=== PATIENT | female | born 1930 | race Caucasian/White ===

== ENCOUNTER 2016-07-04 09:17 | Emergency (ER) | payer OTHER ==
[2016-07-04] MEDS ORDERED: ASPIRIN PO STA (09:42)
--- NOTE | 2016-07-04 10:15 | PROVIDER DOCUMENTATION ---
HPI-Chest Pain - General Chief Complaint: Chest Pain Stated Complaint: CP Time Seen by Provider: 07/04/16 09:56 Source: patient Allergies/Adverse Reactions: Patient Allergies Allergy/AdvReac Type Severity Reaction Status Date / Time No Known Allergies Allergy Verified 07/04/16 10:26 Home Medications: ATORVAstatin [Lipitor] 20 mg PO QHS 07/04/16 Amoxicillin/Potassium Clav [Augmentin 875-125 Tablet] 1 tab PO DAILY 07/04/16 Carvedilol 12.5 mg PO BID 07/04/16 Clopidogrel [Plavix] 75 mg PO DAILY 07/04/16 Isosorbide Dinitrate 30 mg PO DAILY 07/04/16 Losartan Potassium 50 mg PO DAILY 07/04/16 Metformin HCl 500 mg PO QHS 07/04/16 - History of Present Illness-CP Nature of Presenting Problem: Patient is a 85 y/o f that presents to the ER after experiencing chest pain at 0200am. pt has no pain now but was 7/10 initially. radiation to left arm, pt has had no shortness of breath, n/v, or back pain, had stress test 05/30/2016 Location: reports: substernal Chest Pain Radiation: reports: arms (left) Quality of Pain: reports: dull Severity in ED: mild, moderate Onset/Duration: abrupt, this morning Timing: gone now, intermittent Context/Activities at Onset: reports: none Modifying Factors: improves with: nothing Associated Symptoms: denies: back pain, edema, fever/chills, nausea, shortness of breath, vomiting Nitro Today/Relief: no nitro taken today Aspirin Treatment Today: 325 mg x 1, provided by ED Prior Chest Pain/Cardiac Workup: reports: stress test (05/30/2016, no acute, old scar) Similar Symptoms Previously?: Yes Recently Seen Here or By Another Healthcare Provider: No Review of Systems - Adult - REVIEW OF SYSTEMS - ADULT Constitutional: denies: chills, fever Eyes: reports: no symptoms reported Ears, Nose, Mouth & Throat: denies: ear discharge, ear pain, sinus problem, throat pain, throat swelling Cardiovascular: reports: chest pain. denies: palpitations, syncope Respiratory: denies: cough, shortness of breath, wheezing Gastrointestinal: denies: abdominal pain, nausea, vomiting Genitourinary: reports: no symptoms reported Musculoskeletal: denies: back pain, joint pain, neck pain Integumentary: reports: no symptoms reported Neurological: denies: dizziness/vertigo, headache/migraines, syncope Psychiatric: reports: no symptoms reported Endocrine: reports: no symptoms reported Hematologic/Lymphatic: reports: no symptoms reported Allergic/Immunologic: reports: no symptoms reported All Other Systems: Reviewed and Negative Past History - Adult - PAST MEDICAL HISTORY-ADULT Review of Records: reports: Old Records Reviewed, Nursing Assessment Review, Medications Reviewed Cardiovascular: reports: HTN Endocrine/Immune: reports: Diabetes - PRIOR SURGERIES/PROCEDURES Surgical/Procedure History: reports: orthopedic (extremity) - IMMUNIZATION STATUS Childhood Immunizations: See Nurse Assessment Flu Vaccine: See Nurse Assessment - FAMILY HISTORY Family History: reviewed, not pertinent - SOCIAL HISTORY Smoking: non-smoker Living Situation: family Physical Exam-General - PHYSICAL EXAM-ADULT Initial Vital Signs Reviewed: Yes - CONSTITUTIONAL General Appearance: alert, no apparent distress - EYES Eyes: PERRL/EOMI, pink conjunctivae - HEAD, EARS, NOSE, MOUTH & THROAT HENMT: normocephalic/atraumatic, moist mucous membranes, normal ENT inspection - NECK Neck: full range of motion, normal inspection. negative: lymphadenopathy - RESPIRATORY Respiratory: lungs clear, normal breath sounds, no respiratory distress, no accessory muscle use - CARDIOVASCULAR Cardiovascular: normal peripheral pulses, regular rate, rhythm, no edema, no murmur - GASTROINTESTINAL (ABDOMEN) Abdominal Exam: normal bowel sounds, non tender, soft, no organomegaly, no pulsatile mass - MUSCULOSKELETAL Back Exam: no CVA tenderness, no vertebral tenderness Extremity: no calf tenderness, normal capillary refill, pelvis stable - SKIN Integumentary: warm/dry, other (ulcer to right lower leg( actively being treated )) - NEUROLOGIC Neurologic: grossly normal, no motor/sensory deficits - PSYCHIATRIC Psych/Mental Status: normal mood/affect, normal thought content, normal thought process Progress - PLAN OF CARE/RESULTS Progress/Plan/Lab Results: plan of care- cardiac work up 1248-lasix ordered due to elevated BNP 1308-dr.alan valdivia paged to determine if patient can be d/c home to f/u in office 1313- joint special operations for dr. valdivia, ok to f/u in office with in one to two weeks Vital Signs Temp Pulse Resp BP Pulse Ox 07/04/16 11:38 63 15 142/125 96 07/04/16 09:27 97.8 F 61 18 182/62 93 L No Known Allergies Allergy (Verified 07/04/16 10:26) ATORVAstatin [Lipitor] 20 mg PO QHS 07/04/16 Amoxicillin/Potassium Clav [Augmentin 875-125 Tablet] 1 tab PO DAILY 07/04/16 Carvedilol 12.5 mg PO BID 07/04/16 Clopidogrel [Plavix] 75 mg PO DAILY 07/04/16 Furosemide [Lasix] 40 mg PO DAILY #90 tablet 07/04/16 Isosorbide Dinitrate 30 mg PO DAILY 07/04/16 Losartan Potassium 50 mg PO DAILY 07/04/16 Metformin HCl 500 mg PO QHS 07/04/16 Spironolactone [Aldactone] 25 mg PO DAILY #90 tablet 07/04/16 Dietary Diet Regular Diet Start FriJul 04 1309 Laboratory 07/04/16 07/04/16 07/04/16 09:58 09:58 09:58 WBC RBC Hgb Hct MCV MCH MCHC RDW Std Deviation Plt Count MPV Immature Gran % (Auto) Neut % (Auto) Lymph % (Auto) Nobles % (Auto) Eos % (Auto) Baso % (Auto) Immature Gran # (Auto) Neut # (Auto) Lymph # (Auto) Nobles # (Auto) Eos # (Auto) Baso # (Auto) PT 12.4 H INR 1.17 PTT (Actin FS) 29.5 Sodium Potassium Chloride Carbon Dioxide Anion Gap BUN Creatinine Estimated GFR/1.73 m2 BUN/Creatinine Ratio Glucose Calculated Osmolality Calcium Magnesium Total Bilirubin AST ALT Alkaline Phosphatase Creatine Kinase Troponin T < 0.010 [id number] Pept 3906 H Total Protein Albumin Globulin Albumin/Globulin Ratio 07/04/16 07/04/16 09:58 09:58 WBC 12.44 H RBC 3.08 L Hgb 10.9 L Hct 34.4 L MCV 111.7 H MCH 35.4 H MCHC 31.7 L RDW Std Deviation 14.9 H Plt Count 825 H MPV 10.6 H Immature Gran % (Auto) 2.0 H Neut % (Auto) 80.5 H Lymph % (Auto) 7.9 L Nobles % (Auto) 3.5 Eos % (Auto) 4.5 Baso % (Auto) 1.6 H Immature Gran # (Auto) 0.25 H Neut # (Auto) 10.01 H Lymph # (Auto) 0.98 L Nobles # (Auto) 0.44 Eos # (Auto) 0.56 Baso # (Auto) 0.20 PT INR PTT (Actin FS) Sodium 137 Potassium 4.4 Chloride 101 Carbon Dioxide 23 L Anion Gap 13 BUN 17 Creatinine 1.0 H Estimated GFR/1.73 m2 53 BUN/Creatinine Ratio 17 Glucose 205 H Calculated Osmolality 281 Calcium 8.9 Magnesium 2.0 Total Bilirubin 1.05 H AST 12 ALT 6 L Alkaline Phosphatase 104 Creatine Kinase 27 Troponin T [id number]-Ofuuqsexftn Pept Total Protein 6.0 L Albumin 3.7 Globulin 2.3 Albumin/Globulin Ratio 1.6 Orders Category Date Time Status Cardiac Monitoring DIRECTED Care 07/04/16 09:43 Active Misc. NRSG Communication Order DIRECTED Care 07/04/16 13:05 Active Oxygen Therapy- ED Nursing DIRECTED Care 07/04/16 09:43 Active Saline Loc NOW Care 07/04/16 09:43 Active Regular Diet Diet 07/04/16 13:09 Active CHEST-2 VIEWS [RAD] Stat Exams 07/04/16 09:43 Draft CBC WITH ELECTRONIC DIFF [HEME] Stat Lab 07/04/16 09:58 Completed CK PROFILE [SP CHEM] Stat Lab 07/04/16 09:58 Completed COMPREHENSIVE METABOLIC PANEL [CHEM] Stat Lab 07/04/16 09:58 Completed MAGNESIUM [CHEM] Stat Lab 07/04/16 09:58 Completed PRO B-NATRIURETIC PEPTIDE Stat Lab 07/04/16 09:58 Completed PROTIME WITH INR [COAG] Stat Lab 07/04/16 09:58 Completed PTT [COAG] Stat Lab 07/04/16 09:58 Completed TROPONIN T Stat Lab 07/04/16 09:58 Completed Aspirin Med 07/04/16 09:42 Discontinued 325 mg PO STAT STA Furosemide [Lasix] Med 07/04/16 12:48 Discontinued 40 mg IV NOW ONE EKG [EKG] Stat Ther 07/04/16 09:25 Draft pt will be d/c home f/u with pcp in one to two weeks, rx given, pt was clinically stable and understood d/c instructions. - EKG 1 Time of EKG reading by physician:: 09:27 EKG Read and Signed by:: Buster Lopez EKG Interpretation (*Must complete 3 of following elements*): Abnormal Rate: 60 Rhythm: NSR [place]: normal QRS: normal VT Interval: normal ST Wave: non-specific ST changes - XRAY 1 XRAY Study: Chest Impression: Abnormal XRAY Interpretation: CMG, pulmonary edema, pleural effusions - CONSULTS/PCP/HOSPITALIST Notification #1 *Consult/PCP/Hospitalist*: Time Discussed: 13:13 Reason/Comments: f/u with dr.alan valdivia in office, ok to d/c home with lasix Consult Disposition: F/U in office Departure - Departure Time of Disposition Order: 13:15 DIAGNOSIS: Chest pain, Pulmonary edema Disposition: HOME 01 Certified Medical Emergency: Emergent Condition: Stable Prescriptions: Spironolactone [Aldactone] 25 mg PO DAILY #90 tablet Furosemide [Lasix] 40 mg PO DAILY #90 tablet Referrals: Luis Valdivia [Primary Care Provider] - Call for Appoint. 1-2days Instructions: Chest Pain Observation, Pulmonary Edema, [id number] Attestation - Scribe Verification/Attestation Scribe:: Juanito Zarate Acting as Scribe for:: Ilan Wade Scribe documention review:: This chart was documented by a scribe and accurately reflects the service the provider performed and the decisions made by the provider. Physician Attestation - Physician Attestation I, the provider, attest to the following statement:: Ilan Wade Physician documentation Attestation:: This documentation recorded by the scribe accurately reflects the service I personally performed and the decisions made by me.
[2016-07-04 10:28] LABS: ALBUMIN 3.7 g/dL (3.5-5.0); CALCIUM 8.9 mg/dL (8.8-10.2); POTASSIUM 4.4 mmol/L (3.5-5.1); TOTAL BILIRUBIN 1.05 mg/dL (0.20-1.00)
[2016-07-04 10:31] LABS: BASO% 1.6 % (0.0-0.8); EOS# 0.56 X1000 (0.0-0.7); EOS% 4.5 % (0.0-10.0); HEMATOCRIT 34.4 % (37.0-47.0); HEMOGLOBIN 10.9 g/dL (12.0-16.0); IMM GRAN# 0.25 X1000 (0.0-0.04); INR 1.17; LYMPH# 0.98 X1000 (1.2-3.4); LYMPH% 7.9 % (20.5-51.1); MANUAL DIFF NEEDED? NO; MCH 35.4 PG (27-31); MCHC 31.7 g/dL (33-37); MCV 111.7 FL (81-99); MONO# 0.44 X1000 (0.11-0.59); MONO% 3.5 % (1.7-9.3); MPV 10.6 FL (7.4-10.4); NEUT% 80.5 % (42.2-75.2); PLT 825 X1000 (130-400); PROTIME 12.4 Seconds (9.2-11.7); PTT 29.5 Seconds (22.0-36.0); RBC 3.08 XMIL (4.2-5.4)
--- NOTE | 2016-07-04 11:01 | Diag Imaging Result Document ---
PROCEDURE NAME: CHEST-2 VIEWS - 07/04/2016 CHEST X-RAY 2 VIEWS: COMPARISON: 05/04/2015. FINDINGS: There is mild cardiomegaly and pulmonary vascular congestion. There is probably trace interstitial pulmonary edema. There are also trace pleural effusions. IMPRESSION: Mild cardiomegaly, pulmonary edema and pleural effusions.
--- NOTE | 2016-07-04 12:35 | EKG Report ---
Test Performed on : 07/04/2016 09:27:25 AM Test Reason : CP Blood Pressure : / mmHG Vent. Rate : 060 BPM Atrial Rate : 060 BPM P-R Int : 152 ms QRS Dur : 086 ms QT Int : 454 ms P-R-T Axes : 065 052 047 degrees QTc Int : 454 ms Normal sinus rhythm. Nonspecific T wave abnormality Abnormal ECG When compared with ECG of 04-MAY-2015 15:38, premature supraventricular complexes. are no longer present Vent. rate has decreased BY [address] no longer elevated in Inferior leads T wave inversion no longer evident in Lateral leads Unconfirmed Result
[2016-07-04] MEDS ORDERED: LASIX IV ONE (12:48)
[2016-07-04 14:30] VITALS: BP 164/54
== END 2016-07-04 14:35 | disposition home or self-care (01) ==
LOC: ED 09:17
DX: J81.1 Chronic pulmonary edema (principal); R07.9 Chest pain, unspecified; R94.31 Abnormal electrocardiogram [ECG] [EKG]; M79.602 Pain in left arm; L97.219 Non-pressure chronic ulcer of right calf with unspecified severity; I10 Essential (primary) hypertension; E11.9 Type 2 diabetes mellitus without complications; Z79.02 Long term (current) use of antithrombotics/antiplatelets; Z79.899 Other long term (current) drug therapy
CPT/HCPCS: 71020; 80053; 82550; 83735; 83880; 84484; 85025; 85610; 85730; 93005; 96374; J1940

== ENCOUNTER 2018-11-27 10:38 | Inpatient (IN) ==
[2018-11-27 14:13] LABS: I-STAT CREATININE 1.4 mg/dL (0.6-1.3)
--- NOTE | 2018-11-27 15:03 | Diag Imaging Result Doc PS360 ---
MRI ORBIT/FACE/NECK W/WO CON - 11/27/2018 INDICATION: oral abscess TECHNIQUE: COMPARISON: 06/05/2018 FINDINGS: There is an oval, irregular rim-enhancing fluid collection just medial to the right mandibular body. This measures 2.7 x 1.9 x 3.8 cm in AP, lateral, and craniocaudal dimensions. This extends up to the pterygoid musculature. There is some deviation of the tongue to the left. There is also significant deviation of the oral pharyngeal airway to the left. There is intense surrounding soft tissue hyperintensity and enhancement, also including the souvenir assembler musculature at the lateral side of the mandible. IMPRESSION: 1. Oral abscess in the right sublingual space. 2. Significant inflammation of the right sublingual and souvenir assembler spaces. 3. Significant deviation of the tongue base and oral airway to the right. 4. This report was discussed with Dr. Jf Hilton on 11/27/2018 at 2:45 PM and was readback. Electronically signed by Francisco Golden 11/27/2018 3:01 PM
[2018-11-27] MEDS ORDERED: NS 1,000 ML IV ONE ×2 (15:36→15:45)
[2018-11-27] MEDS: ZOSYN 3.375 GM in NS 50 ML IV SCH ×2 (15:49→20:32)
[2018-11-27] MEDS ORDERED: XYLOCAINE 1%/EPI 1:100,000 ONE (16:00)
--- NOTE | 2018-11-27 16:13 | Diag Imaging Result Doc PS360 ---
CHEST-PORTABLE - 11/27/2018 INDICATION: oral abscess, preop COMPARISON: 06/05/2018 FINDINGS: Stable mild cardiomegaly. Pulmonary vascularity is normal. No infiltrates or edema. No pneumothorax or pleural effusion. IMPRESSION: Mild cardiomegaly. Electronically signed by Francisco Golden 11/27/2018 4:11 PM
[2018-11-27] MEDS: HUMULIN R SUBQ SCH ×2 (16:29→20:30)
[2018-11-27] MEDS: MORPHINE IV PRN ×2 (16:30→18:06)
[2018-11-27 16:40] LABS: BASO# 0.29 X1000 (0.0-0.2); BASO% 1.8 % (0.0-0.8); EOS% 0.6 % (0.0-10.0); HEMATOCRIT 32.9 % (37.0-47.0); HEMOGLOBIN 10.5 g/dL (12.0-16.0); IMM GRAN# 0.08 X1000 (0.0-0.04); IMM GRAN% 0.5 % (0.0-0.5); LYMPH# 0.68 X1000 (1.2-3.4); LYMPH% 4.2 % (20.5-51.1); MCH 28.2 PG (27-31); MCHC 31.9 g/dL (33-37); MCV 88.4 FL (81-99); MONO# 0.38 X1000 (0.11-0.59); MONO% 2.4 % (1.7-9.3); MPV 11.5 FL (7.4-10.4); NEUT# 14.64 X1000 (1.4-6.5); NEUT% 90.5 % (42.2-75.2); PLT 331 X1000 (130-400); RBC 3.72 XMIL (4.2-5.4); RDW 19.8 % (11.5-14.5); WBC 16.17 X1000 (4.8-10.8)
[2018-11-27 16:44] LABS: HEMOGLOBIN A1C 5.8 % (4.8-6.0)
[2018-11-27 16:50] LABS: ALB/GLOB RATIO 1.4; ALBUMIN 3.7 g/dL (3.5-5.0); CALCIUM 8.5 mg/dL (8.8-10.2); CREATININE 1.3 mg/dL (0.5-0.9); POTASSIUM 3.7 mmol/L (3.5-5.1); TOTAL BILIRUBIN 1.25 mg/dL (0.20-1.00); TOTAL PROTEIN 6.3 g/dL (6.3-8.3)
--- NOTE | 2018-11-27 17:03 | HISTORY AND PHYSICAL ---
PRIMARY CARE PHYSICIAN: Dr. Luis Morales. CHIEF COMPLAINT: Neck and facial swelling. HISTORY OF PRESENT ILLNESS: Mrs. Parks is an 88-year-old female with a history of polycythemia, diabetes mellitus, dementia, hypertension, and chronic kidney disease who presents with significant right neck and facial swelling since yesterday. Symptoms started last night abruptly. She started having neck and facial pain followed by swelling. She reports subjective fever. She has not had any recent oral work done. Interestingly, she did have a right orbit fracture with hematoma in May of last year. She has also had facial zoster, per son, who is at the bedside. She went to see Dr. Hilton today, who felt she needed to be in the ICU given the amount of oral swelling. She has now arrived to the ICU and is hemodynamically stable, actually a bit hypertensive. She does have a low-grade fever. Laboratory data has been ordered along with cultures. An MRI of the orbits, face, and neck has been done, which shows an oral abscess in the right sublingual space with inflammation of the manufacturing quality inspector and right sublingual spaces and there is significant deviation of the tongue base and oral airway to the right. Her airway is intact at this time. She is being monitored closely. Will admit her for further treatment and evaluation. PAST MEDICAL HISTORY: 1. Polycythemia, on oral medication. 2. Paroxysmal atrial fibrillation, on anticoagulation. 3. Hypertension. 4. Type 2 diabetes mellitus. 5. History of orbital fracture. 6. Dementia. 7. CKD, exact stage unknown, but it looks like her creatinine hovers around 1.4. 8. History of CAD, status post ST elevation SC. SURGICAL HISTORY: Right oophorectomy and abdominal tumor removed. ORIF of left proximal humerus. SOCIAL HISTORY: No tobacco, alcohol, or drug use. She is . Son is at the bedside, takes care of her. REVIEW OF SYSTEMS: A 14-point review of systems was obtained and found to be negative with the exception of the HPI. PHYSICAL EXAMINATION: VITAL SIGNS: Blood pressure 172/69; heart rate 77; respiratory rate 18; O2 saturation 99% on room air; temperature 99.2. GENERAL: Elderly, somewhat disheveled appearing 88-year-old female lying in the hospital bed in no acute distress. NEUROLOGICAL: She is awake and alert. Follows commands. No focal deficits. HEENT: Head is atraumatic and normocephalic. Pupils are equal, round and reactive to light. Oral mucosa is dry. Significant swelling of the right neck and face with redness tracking up to the right ear. Direct intraoral visualization is difficult due to the swelling. There is no obvious tracheal deviation. She is drooling a little bit and having a difficult time speaking. The submandibular mass is warm. CHEST: Diminished but clear to auscultation bilaterally. CARDIOVASCULAR: Regular rate and rhythm. S1 and S2 are noted. There are no appreciable murmurs. GASTROINTESTINAL: Soft, nontender and nondistended. Bowel sounds are active. EXTREMITIES: No edema, clubbing, or cyanosis. Pulses are palpable bilaterally. DIAGNOSTIC DATA: Orbits/face MRI: Oral abscess in the right sublingual space, inflammation of the right sublingual and manufacturing quality inspector spaces with deviation of the tongue base and oral airway to the right. Otherwise, laboratory data is pending. ASSESSMENT AND PLAN: 1. Oral abscess: Surgical management per Dr. Hilton. We have added Zosyn for antibiotic coverage. Have drawn blood cultures. 2. History of coronary artery disease: The patient denies any chest pain at this time. Aspirin is on hold. Will try to obtain records, possibly obtain a Cardiology clearance from Cardiology here. She sees Dr. Acevedo. 3. Polycythemia: Awaiting complete blood count. She is apparently on medication, followed by Dr. Roberts. Will monitor and treat accordingly. 4. Diabetes mellitus: Will add patterned sugars sliding scale insulin. Check a hemoglobin A1c. 5. Hypertension: Continue home medications once reconciled. 6. History of atrial fibrillation: She is on Eliquis, per the son. Will stop that. Continue any rate control. Further recommendations to follow. Dictated by LUNA Ingram for Memo Solares MD cc: LUNA Ingram MD I have seen and examined Ms Parks today. She presents from Dr Hilton office due to dental abscess. I have reviewed her labs and imaging studies. She has dental abscess with extension to sublingual space. She will be started on broad spectrum IV antibiotics and we pending surgical I and D. I agree with the above HPI and the plan reflects my opinion discussed with the LICENSING MANAGER. I have also discussed the plan with Ms. Parks. LUIS
[2018-11-27 17:12] LABS: EOS 1 % (1-10); LYMPHS 5 % (21-51); MONO 2 % (1-9); SEGS 92 % (42-75)
[2018-11-27 17:42] LABS: URINE SOURCE CLEAN CATCH
[2018-11-27 17:51] LABS: BILIRUBIN URINE NEGATIVE (NEGATIVE); BLOOD URINE TRACE (NEGATIVE); COLOR YELLOW; GLUCOSE URINE TRACE mg/dL (NEGATIVE); KETONE URINE TRACE mg/dL (NEGATIVE); LEUKOCYTES URINE LARGE (NEGATIVE); NITRITE URINE NEGATIVE (NEGATIVE); PH URINE 6.5; PROTEIN URINE 300 mg/dL (NEGATIVE); TURBIDITY URINE HAZY (CLEAR); UROBILINOGEN URINE 2 mg/dL (NORMAL)
[2018-11-27 17:53] LABS: URINE BACTERIA 1+ /HPF; URINE RBC <10 /HPF (<10); URINE WBC TNTC /HPF (<10)
[2018-11-27] MEDS ORDERED: DILAUDID IV ONE (19:03)
[2018-11-27 19:16] LABS: UR EPITHELIAL CELLS <10 /HPF (<10)
[2018-11-27] MEDS: CLINDAMYCIN 600 MG/D5W 600 MG/50 ML IVPB IV SCH (19:20)
--- NOTE | 2018-11-28 00:05 | OPERATIVE NOTE ---
PROCEDURE DATE: 11/27/2018 PREOPERATIVE DIAGNOSIS: Dental abscess. POSTOPERATIVE DIAGNOSIS: Dental abscess. PROCEDURE: Incision and drainage, floor of mouth and dental abscess. COMPLICATIONS: None. ANESTHESIA: Local 1% lidocaine with 1:100,000 epinephrine. INDICATIONS: This is a diabetic 88-year-old lady who had an MRI and was noted to have an abscess medial to the mandible on the right side. I spoke with Dr. Gaytan, as Belia Ocampo has no oral surgeons construction recruiter. I asked him to advise me how to handle this. He said the intraoral incision would be a reasonable thing to try, and he would follow up with the patient as an outpatient. DESCRIPTION OF PROCEDURE: The patient was identified and consented. Options were reviewed. She was placed with the head of bed elevated and her ICU bed scooted towards the right rail. With retractors, her buccal mucosa was retracted and the tongue was retracted medially. The right mandible was exposed. There was purulent drainage from the anterior portion of the retromolar trigone. There must be some dental roots left in there, as this is where the drainage is coming from, but there are no teeth visualized. Lidocaine was placed and an incision was created over the medial aspect of the mandible. Copious amounts of purulent material was removed using incision and spreading technique with a long hemostat. Cultures were sent. Instructions were given to the nurses to advance her diet. Continue antibiotics per hospitalist. This should help quite a bit. Again, she will follow up with Dr. Gaytan as an outpatient once she is discharged from the hospital. cc: Jeremy Hilton MD
[2018-11-28] MEDS: CLINDAMYCIN 600 MG/D5W 600 MG/50 ML IVPB IV SCH ×3 (03:25→17:30)
[2018-11-28] MEDS: ZOSYN 3.375 GM in NS 50 ML IV SCH ×4 (03:32→21:05)
[2018-11-28 06:33] LABS: BASO# 0.24 X1000 (0.0-0.2); BASO% 1.5 % (0.0-0.8); EOS# 0.05 X1000 (0.0-0.7); EOS% 0.3 % (0.0-10.0); HEMATOCRIT 31.4 % (37.0-47.0); HEMOGLOBIN 9.9 g/dL (12.0-16.0); IMM GRAN# 0.07 X1000 (0.0-0.04); IMM GRAN% 0.5 % (0.0-0.5); LYMPH# 0.58 X1000 (1.2-3.4); LYMPH% 3.7 % (20.5-51.1); MCHC 31.5 g/dL (33-37); MCV 88.7 FL (81-99); MONO# 0.46 X1000 (0.11-0.59); MPV 12.5 FL (7.4-10.4); PLT 337 X1000 (130-400); RBC 3.54 XMIL (4.2-5.4); RDW 20.1 % (11.5-14.5)
[2018-11-28 06:37] LABS: CALCIUM 8.9 mg/dL (8.8-10.2); CREATININE 1.4 mg/dL (0.5-0.9); MAGNESIUM 2.1 mg/dL (1.5-2.7); POTASSIUM 3.4 mmol/L (3.5-5.1)
[2018-11-28] MEDS: HUMULIN R SUBQ SCH ×4 (07:47→20:52)
[2018-11-28] MEDS: MORPHINE IV PRN ×4 (09:16→21:06)
--- NOTE | 2018-11-28 13:55 | PROGRESS NOTE ---
DATE: 11/28/2018 SUBJECTIVE: This morning Ms. Parks refers to be doing a lot better. She got admitted yesterday because of dental abscess with facial cellulitis. She underwent some incision and drainage of floor of mouth and dental abscess by Dr. Hilton. This morning, she refers to be feeling a lot better. OBJECTIVE: Vital Signs: Blood pressure is 168/57, pulse of 71, respirations is 20, temperature is 99.2 degrees. General exam: Ms. Parks is an 88-year-old female. She was in bed in no distress. HEENT: Mucosa is pink and moist. Anicteric. Acyanotic. Neck: Supple. There is swelling over the right mandible angle. That comes all the way down to the submandibular and sublingual area on the right side. It is minimally tender. The erythematous change that was very obvious yesterday, is now gone. Chest: Good air entry bilaterally. No crepitations. Cardiovascular: Regular rate and rhythm. There are no murmurs, no rubs, no gallops. Abdomen: Soft, nontender. Extremities: No pedal edema. ADMINISTRATION MANAGER: Patient is awake, alert, and oriented. LABORATORY DATA: WBC is down to 15.50, hemoglobin is 9.9, platelet count of 337. Chemistry is also reviewed, unremarkable. The stain from the abscess shows gram-positive cocci 1+. ASSESSMENT: 1. Dental abscess extending into the sublingual space causing Beto angina. The patient is status post incision and drainage. I understand a lot of purulent material was drained during surgery. We are still pending the incision and drainage on the culture report. For now, patient is on Zosyn and clindamycin. The Gram stain seems to suggest gram-positive cocci, but we are going to wait for the final incision and drainage. 2. History of coronary artery disease. The patient is currently stable and asymptomatic. 3. History of polycythemia vera. The patient is on Jakafi; we will restart her back. 4. Diabetes mellitus, controlled. 5. History of atrial fibrillation, currently rate controlled. The patient was on Eliquis for stroke prophylaxis. We would resume this tomorrow once there is an adequate hemostasis. cc: Memo Solares MD
[2018-11-29] MEDS: CLINDAMYCIN 600 MG/D5W 600 MG/50 ML IVPB IV SCH ×2 (03:12→11:21)
[2018-11-29] MEDS: ZOSYN 3.375 GM in NS 50 ML IV SCH ×4 (03:14→20:58)
[2018-11-29 06:38] LABS: BASO# 0.22 X1000 (0.0-0.2); BASO% 1.7 % (0.0-0.8); EOS# 0.23 X1000 (0.0-0.7); EOS% 1.7 % (0.0-10.0); HEMATOCRIT 28.3 % (37.0-47.0); HEMOGLOBIN 8.9 g/dL (12.0-16.0); IMM GRAN# 0.05 X1000 (0.0-0.04); IMM GRAN% 0.4 % (0.0-0.5); LYMPH% 4.5 % (20.5-51.1); MCH 27.7 PG (27-31); MCHC 31.4 g/dL (33-37); MCV 88.2 FL (81-99); MONO# 0.35 X1000 (0.11-0.59); MONO% 2.6 % (1.7-9.3); MPV 12.5 FL (7.4-10.4); NEUT# 11.76 X1000 (1.4-6.5); NEUT% 89.1 % (42.2-75.2); PLT 331 X1000 (130-400); RBC 3.21 XMIL (4.2-5.4); RDW 19.9 % (11.5-14.5); WBC 13.21 X1000 (4.8-10.8)
[2018-11-29] MEDS: HUMULIN R SUBQ SCH ×4 (06:47→20:58)
[2018-11-29 06:54] LABS: CALCIUM 8.2 mg/dL (8.8-10.2); CREATININE 1.4 mg/dL (0.5-0.9); MAGNESIUM 2.1 mg/dL (1.5-2.7); POTASSIUM 2.9 mmol/L (3.5-5.1)
[2018-11-29 07:19] LABS: EOS 1 % (1-10); LYMPHS 4 % (21-51); MONO 2 % (1-9); SEGS 93 % (42-75)
[2018-11-29] MEDS ORDERED: KLOR-CON PO ONE (08:19)
[2018-11-29] MEDS ORDERED: NORCO-7.5 PO PRN (08:46)
--- NOTE | 2018-11-29 09:10 | PROGRESS NOTE ---
DATE: 11/29/2018 SUBJECTIVE: This morning, Ms. Parks refers to be feeling a little better. Still has some pain in the submandibular region, which continues to be swollen. OBJECTIVE: Vital signs: Blood pressure is 134/54, pulse of 63, respirations 15, temperature is 98.8 degrees. General: Ms. Parks is an 88-year-old female. She was in bed. She did not seem to be in any cardiopulmonary distress. ENT: Mucosa is pink and moist, anicteric and acyanotic. Head and neck: The submandibular region is particularly more swollen, tender. There is no change of the overlying skin pain and I do not feel any fluctuation. Neck: Supple. Chest: Good air entry bilaterally. There were no crepitations, no rhonchi. Cardiovascular: Regular rate and rhythm. No murmurs, no rubs, no gallops. GI: Abdomen was soft, nontender. Bowel sounds present. Extremities: No pedal edema. Distal pulses were present. WAREHOUSE DRIVER: Patient is awake, alert, and oriented. LABORATORY DATA: WBC is down to 13.21, hemoglobin is 8.9, platelet count of 333,000. There are no bands on peripheral smear. Chemistry is also reviewed. Potassium is 2.9, chloride is 108, creatinine is 1.4. That is patient's baseline. ASSESSMENT: 1. Dental abscess extending into the sublingual space causing a lot of angina. The patient is status post incision and drainage. Culture from that specimen has been negative. The patient is currently on Zosyn and clindamycin. She continues to have some pain, so we are going to add something for pain and an anti-inflammatory medication and will be pending further evaluation and recommendations from Dr. Hilton. 2. History of coronary artery disease, currently asymptomatic. 3. History of polycythemia vera. The patient is on Jakafi. 4. Diabetes mellitus, controlled. 5. History of atrial fibrillation, currently rate controlled. 6. History of chronic kidney disease. The creatinine is fairly stable. We are going to be keeping a very close eye on this since we are putting the patient on a very low dose of NSAIDs. cc: Memo Solares MD
[2018-11-29] MEDS: NS 1,000 ML IV SCH ×2 (09:14→22:55)
[2018-11-29] MEDS ORDERED: VANCOMYCIN IV PER PHARMACY MISC SCH (13:30)
[2018-11-29] MEDS: MOTRIN PO SCH ×2 (14:20→20:58)
[2018-11-29] MEDS ORDERED: VANCOMYCIN 1,500 MG in NS 250 ML IV ONE (15:00)
[2018-11-30] MEDS: MOTRIN PO SCH (04:41)
[2018-11-30] MEDS: ZOSYN 3.375 GM in NS 50 ML IV SCH ×3 (04:41→09:42)
[2018-11-30] MEDS: HUMULIN R SUBQ SCH ×2 (06:03→11:20)
[2018-11-30 07:39] LABS: BASO# 0.39 X1000 (0.0-0.2); BASO% 2.8 % (0.0-0.8); EOS# 0.46 X1000 (0.0-0.7); EOS% 3.3 % (0.0-10.0); HEMATOCRIT 30.4 % (37.0-47.0); HEMOGLOBIN 9.8 g/dL (12.0-16.0); IMM GRAN# 0.11 X1000 (0.0-0.04); IMM GRAN% 0.8 % (0.0-0.5); LYMPH# 0.55 X1000 (1.2-3.4); LYMPH% 3.9 % (20.5-51.1); MCH 28.2 PG (27-31); MCHC 32.2 g/dL (33-37); MCV 87.4 FL (81-99); MONO# 0.33 X1000 (0.11-0.59); MONO% 2.4 % (1.7-9.3); MPV 12.3 FL (7.4-10.4); NEUT# 12.13 X1000 (1.4-6.5); NEUT% 86.8 % (42.2-75.2); PLT 384 X1000 (130-400); RBC 3.48 XMIL (4.2-5.4); RDW 20.6 % (11.5-14.5); WBC 13.97 X1000 (4.8-10.8)
[2018-11-30 07:51] LABS: EOS 2 % (1-10); LYMPHS 10 % (21-51); SEGS 88 % (42-75)
[2018-11-30 07:54] VITALS: BP 177/86
[2018-11-30 08:31] LABS: POTASSIUM 4.1 mmol/L (3.5-5.1)
[2018-11-30 08:32] LABS: ALB/GLOB RATIO 1.5; ALBUMIN 3.5 g/dL (3.5-5.0); CALCIUM 8.6 mg/dL (8.8-10.2); CREATININE 1.4 mg/dL (0.5-0.9); TOTAL BILIRUBIN 1.01 mg/dL (0.20-1.00); TOTAL PROTEIN 5.8 g/dL (6.3-8.3)
[2018-11-30] MEDS ORDERED: LANTUS INSULIN SUBQ SCH (11:00)
[2018-11-30] MEDS ORDERED: LANTUS INSULIN SUBQ ONE (11:00)
--- NOTE | 2018-12-01 06:40 | DISCHARGE SUMMARY ---
ADMISSION DATE: 11/27/2018 DISCHARGE DATE: 11/30/2018 DISPOSITION: Home. FOLLOW-UP: 1. Dr. Luis Morales MD 2. Dr. Jeremy Hilton 3. Dr. Gaytan CONSULTATION DURING ADMISSION: ENT was consulted. Patient was seen by Dr. Hilton. INVASIVE PROCEDURE DONE DURING THIS ADMISSION: Incision and drainage floor of mouth and dental abscess was done by Dr. Hilton. IMAGING STUDIES OF SIGNIFICANCE: MRI of the orbit, face and neck showed an oral abscess in the right sublingual space, significant inflammation of the right sublingual and rapid transit operator space. So far, the culture from the mouth showed Streptococcus anginosus. ADMISSION DIAGNOSES: 1. Oral abscess. 2. History of coronary artery disease. 3. Polycythemia. 4. Hypertension. 5. History of atrial fibrillation. DIAGNOSES AT TIME OF DISCHARGE: 1. Dental abscess extending into the sublingual space causing Beto's angina. The patient is status post I and D. Surgical specimen has grown Streptococcus anginosus. 2. History of coronary artery disease, asymptomatic. 3. Polycythemia vera on Jak[place]i. 4. Diabetes mellitus controlled. 5. History of atrial fibrillation currently rate controlled. 6. CKD stage 3A. DISCHARGE MEDICATIONS: 1. Losartan 25 mg p.o. daily. 2. Synthroid 75 p.o. daily. 3. Amiodarone 100 mg p.o. daily. 4. Docusate 100 mg p.o. daily. 5. 2.5 p.o. daily and 5 mg at bedtime. 6. Insulin glargine 10 units subcutaneous at bedtime. 7. Pantoprazole 40 mg daily. 8. Linagliptin 5 mg p.o. daily. 9. Apixaban 2.5 b.i.d. 10. Tramadol 50 mg 4 times per day p.r.n. 11. Motrin 400 p.o. q.8. 12. Clindamycin 300 mg 3 times per day. 13. Lactobacillus. 14. Augmentin 875 p.o. q.12h. PRESENTING COMPLAINT: Neck and facial swelling. HISTORY OF PRESENTING COMPLAINT: Ms. Parks is an 88-year-old female with multiple comorbidities including polycythemia vera, paroxysmal atrial fibrillation, diabetes mellitus, CKD, and coronary artery disease status post stent in the past. She went to visit her primary care doctor because of facial swelling. She was sent to see Dr. Hilton, who recommended admission. An MRI was done which confirmed a dental abscess extending to the sublingual space causing some hoarseness and deviation of the tongue. The patient was admitted to the ICU because of a concern of airway compromise. She was started on IV broad-spectrum antibiotics and adequate hydration. Other comorbidities were managed and ENT was consulted. Patient was seen by Dr. Hilton. He took the patient to the OR and did an I and D. Subsequently, patient continues to improve. The specimen has grown Streptococcus anginosus. The patient has been moved to the regular floor. She is doing fine. White cell count has almost normalized. We think Ms Parks is doing a lot better so she is going to be discharged on oral antibiotics. She will follow up with Dr. Hilton as well as Dr. Gaytan, who is an oral dental surgeon, and the patient's primary PCP. All of the discharge instructions have been discussed with her. At the time of the discharge, vitals show blood pressure is 177/86, pulse of 75, respirations 20, and temperature is 98.6 degrees. The patient's facial submandibular and sublingual swelling has remarkably improved. TIME SPENT FOR DISCHARGE: 36 minutes. cc: MD Luis Andrews MD Dr. Light Dr. Littlejohn MTDD
[2018-12-01] MEDS ORDERED: VANCOMYCIN 1,250 MG in NS 250 ML IV SCH (14:00)
== END 2018-11-30 12:42 | disposition home or self-care (01) | DRG 138 ==
LOC: DIRADM 10:38 → ICU 10:56 → 3N 11-29 15:15
PROVIDERS: ATTEND Internal Medicine
CPT/HCPCS: 70543; 71010; 71045; 80048; 80053; 81001; 82550; 82565; 82948; 83036; 83735; 83880; 84484; 84520; 85025; 87040; 87070; 87075; 87077; 87088; 87186; 87205; A9270; A9579; J1170; J1815; J2270; J2543; J3370; J7030; J7050; XXXXX